=== PATIENT | female | born 1985 | race Asian ===

== ENCOUNTER → 2024-09-04 | Outpatient (CLI) | payer BC, SELFPAY ==
--- NOTE | 2024-09-04 13:00 | XR_ITS ---
Examination: Breast ultrasound, unilateral, right complete Date and time of exam: August 25, 2024 1248 hrs. Indications: Mammogram 05/17/2020 47.2 cm circumscribed area of probable glandular tissue 12:00 position right breast Technique: Real-time reyes scale ultrasonographic imaging performed right breast including all 4 quadrants as well as nipple retroareolar and axillary region. Findings: 12:00 oval mass lobular margins 7 x 6 mm 12:00 oval mass lobular margins 10 x 10 mm 12:00 isoechoic mass 4.9 x 1.6 x 5.0 cm partially indistinct margins Impression: BI-RADS Category 4: Suspicious for malignancy 12:00 mass 4.9 x 1.6 x 5.0 cm with partially indistinct margins Recommend ultrasound-guided biopsy of this mass to exclude carcinoma
== END | disposition home or self-care (01) ==
PROVIDERS: PCP Internal Medicine; Referring Provider Internal Medicine; Visit Provider Internal Medicine
DX: N63.25 Unspecified lump in the left breast, overlapping quadrants (principal)
CPT/HCPCS: 76641

== ENCOUNTER → 2024-10-08 | Outpatient (CLI) | payer BC, SELFPAY ==
--- NOTE | 2024-10-08 10:30 | XR_ITS ---
Examinations: Ultrasound-guided percutaneous breast biopsy, right breast 12:00 nodule Right breast sonography limited. Exam date and time: October 08, 2024 at 1353 hours INDICATIONS: Right breast sonogram September 04, 2024 BI-RADS 4 suspicious mass 12:00 position right breast. Informed consent provided. Technique: A timeout was completed verifying correct patient, procedure, site, positioning, and special equipment if applicable Informed consent provided. The patient was placed in a supine position for the breast biopsy. Sonographic images of the breast were performed for localization of the suspicious nodule The patient's breast was prepped and draped in sterile fashion. Maximum sterile barrier technique, hand hygiene, ultrasound sterile technique 1% lidocaine was used to anesthetize the skin and breast adjacent to the suspicious nodule. Utilizing ultrasonographic guidance, 8 core biopsies were obtained of the suspicious nodule utilizing an 18-gauge BioPince needle. The specimens appears satisfactory. US guided breast biopsy marker placement. Estimated blood loss 3 cc. The patient tolerated the procedure well and there were no complications. Impression: Successful ultrasound-guided percutaneous breast biopsy, right breast 12:00 mass. Ultrasound guided breast biopsy marker placement.
[2024-10-08 13:30] LABS: Basophils % (Auto) 1 % (0-2.5); Eosinophils # (Auto) 0.1 Thou/mm3 (0.0-0.5); Eosinophils % (Auto) 2 % (0-10); Hematocrit 41.9 % (36.0-46.0); Hemoglobin 14.3 g/dL (12.0-16.0); Immature Granulocytes % (Auto) 0 % (0-0); Immature Granulocytes Auto 0.02 Thou/mm3 (0.00-0.00); Lymphocytes # (Auto) 2.3 Thou/mm3 (1.0-4.8); Lymphocytes % (Auto) 38 % (10-50); Mean Corpuscular HGB Conc 34.1 g/dl (31.0-37.0); Mean Corpuscular Hemoglobin 29.7 pg (25.0-35.0); Mean Corpuscular Volume 87 fL (80-100); Monocytes # (Auto) 0.4 Thou/mm3 (0.0-0.8); Monocytes % (Auto) 6 % (0-12); Neutrophils # (Auto) 3.3 Thou/mm3 (1.8-7.7); Neutrophils % (Auto) 53 % (37-80); Nucleated Red Blood Cell % 0 /100 WBC (0); Platelet Count 264 Thou/mm3 (140-440); RDW Standard Deviation 38.1 fL (36.4-46.3); Red Blood Count 4.81 Miln/mm3 (4.00-5.20); White Blood Count 6.1 Thou/mm3 (3.6-11.0)
[2024-10-08 13:39] LABS: Partial Thromboplastin Time 27.8 Seconds (22.0-36.0); Prothrombin Time 10.9 Seconds (9.0-12.2)
[2024-10-08 13:47] LABS: HCG,Qualitative Serum Negative
== END | disposition home or self-care (01) ==
LOC: SIRX 10-11 08:59
PROVIDERS: Radiology Diagnostic Radiology; PCP Internal Medicine; Referring Provider Internal Medicine; Visit Provider Internal Medicine
DX: R92.8 Other abnormal and inconclusive findings on diagnostic imaging of breast (principal); D24.1 Benign neoplasm of right breast
CPT/HCPCS: 19083; 36415; 84703; 85025; 85610; 85730; A4648